=== PATIENT | male | born 1945 | race Caucasian/White ===

== ENCOUNTER → 2020-12-27 | Day surgery (SDC) | payer OTHER ==
[~2020-12-27] MED LIST: ACETAMINOPHEN 500 MG TABLET PO PRN; ASCO500C9 PO; ASPI-630 PO; BALANCED SALT IRRIG SOLN NO.2 500 ML IO ONE; BENZONATATE 100 MG CAPSULE. PO PRN; BRIMONIDINE 0.2% OPHTH SOLUTION 5ML BOTTLE. OS ONE; CEFUROXIME OPHTH 4 MG/0.4 ML SYRINGE. OS ONE; CHONDROIT-SOD-HYALURONATE KIT. OS ONE; CRESTOR10 MG PO; IBUPROFEN 200 MG TABLET PO PRN; IPRATRPIUM/ALBUTEROL 0.5/2.5MG 3 ML NEBU. NEB PRN; IV RINGERS SOLUTION,LACTATED 1,000 ML IV SCH; LIDO/EPI IN BSS OPHTH 2.7 ML SYRINGE. OS ONE; LIDOCAINE 2% JELLY 6ML IN APPLICATOR. ONE; LISI10TA16 PO; METO25TA4 PO; MIDAZOLAM HCL PF 2 MG/2 ML VIAL. IV ONE; MIDAZOLAM HCL PF 2 MG/2 ML VIAL. ONE; ONDANSETRON PF 4 MG/2 ML VIAL. IV PRN; PHENYLEPHRINE 10% OPHTH SOLUTION 5ML BOTTLE. OS PRN; POVIDONE-IODINE 5% OPHTH SOLUTION 30ML BOTTLE. ONE; POVIDONE-IODINE 5% OPHTH SOLUTION 30ML BOTTLE. OS ONE; POVIDONE-IODINE 5% OPHTH SOLUTION 30ML BOTTLE. OS PRN; PROPARACAINE 0.5% OPHTH SOLUTION 15ML BOTTLE. OS ONE; PROPARACAINE 0.5% OPHTH SOLUTION 15ML BOTTLE. OS PRN; prednisoLONE ACETATE 1% OPHTH SUSPENSION 5ML BOTTLE. OS ONE; vitamin d PO
[2020-12-27] MEDS: PHENYLEPHRINE 2.5% OPHTH SOLUTION 2ML BOTTLE. OS SCH ×3 (07:24→07:34)
[2020-12-27] MEDS: TOBRAMYCIN 0.3% OPHTH SOLUTION 5ML BOTTLE. OS SCH ×2 (07:24→07:29)
[2020-12-27] MEDS: KETOROLAC TROMETHAMINE 0.5% OPHTH SOLUTION BOTTLE. OS SCH ×2 (07:24→07:29)
[2020-12-27] MEDS: TROPICAMIDE 1% OPHTH SOLUTION 15ML BOTTLE. OS SCH ×3 (07:24→07:34)
--- NOTE | 2020-12-27 08:40 | PDOC4 ---
SURGEON: Lorrie Juan MD Date of Procedure: 12/27/20 PREOP Diagnosis Visually significant cataract: Left Eye OS POSTOP Diagnosis Same PROCEDURE: Phaco w/ posterior chamber IOL: Left Eye OS ANESTHESIA Deep forniceal periocular 2% Lidocaine jelly Ariadne/retro bulbar block with 2% Lidocaine with 0.5% Marcaine DESCRIPTION OF PROCEDURE The risks, benefits, and alternatives were discussed with the patient who elected to proceed. Informed consent was obtained in writing and placed in the chart After anesthetizing the eye topically, the patient was taken to the operating room, and the operative eye was prepped and draped in the usual sterile fashion for ocular surgery. A wire lid speculum was placed. A 1-mm clear corneal paracentesis incision was created with the side-port blade at a position three o'clock hours clockwise from the temporal cornea. Then, 1% non-preserved Lidocaine with epinephrine was injected into the anterior chamber followed by viscoelastic. Cotton-tipped applicators were used to stabilize the globe, and a 2.4 mm keratome was used to create a self-sealing incision in clear cornea at the temporal limbus. The Utrata forceps were used to create a continuous curvilinear capsulorrhexis. Balanced saline solution was injected via cannula beneath the capsulorrhexis edge to hydrodissect the lens nucleus and cortex from the lens capsule. The phacoemulsification handpiece and a chopping instrument were then used to remove the lens nucleus. The remaining epinuclear material and cortex were removed with the irrigation/aspiration handpiece. Vis coelastic was used to re-inflate the lens capsule, and the intraocular lens was injected directly into the capsular bag. The corneal wound edges were hydrated with balanced salt solution on a cannula and the irrigation/aspiration handpiece was used to extract the remaining viscoelastic. Cefuroxime 0.1mg/ml / Vigamox 0.5% was injected into the anterior chamber intracamerally. The wounds were inspected and found to be watertight at an appropriate intraocular pressure. Topical antibiotic drops were placed on the corneal surface. LRI: No If Yes, Number [] [place] [] Length [] degrees Depth [] microns Incision [place]: [address] Lens [place] [] Patch/shield with Maxitrol/Tobradex/Erythromycin ointment: Yes No Co-managed patients/postop examination stable for co-management with referring doctor. EBL EBL: None SPECIMANS COLLECTED Specimens Collected: None LORRIE JUAN MD Dec 27, 2020 08:40
[2020-12-27 08:53] VITALS: BP 129/85
== END | disposition home or self-care (01) ==
LOC: SURG 06:46
PROVIDERS: ATTEND Ophthalmology
DX: H25.12 Age-related nuclear cataract, left eye (principal); I10 Essential (primary) hypertension; M19.90 Unspecified osteoarthritis, unspecified site; E78.00 Pure hypercholesterolemia, unspecified; Z79.899 Other long term (current) drug therapy; Z79.82 Long term (current) use of aspirin
CPT/HCPCS: 66984; J2250; V2632